=== PATIENT | female | born 1995 | race Caucasian/White ===

== ENCOUNTER 2020-09-21 15:56 | Emergency (ER) | payer OTHER, SELFPAY ==
[2020-09-21 16:06] VITALS: BP 101/68; PULSE 100; RESP 20; TEMP 37.4; O2SAT 98
--- NOTE | 2020-09-21 16:31 | ED.DENTAL ---
HPI - Dental/Oral General Chief complaint: Dental/Oral Stated complaint: lt side facial swelling/tooth pain Time Seen by Provider: 09/21/20 16:35 Source: patient and RN notes reviewed Mode of arrival: ambulatory Limitations: no limitations History of Present Illness HPI Narrative: 25-year-old female who presents to [facility] care with complaints of 1 week duration of left upper jaw pain with some swelling to the left upper jaw. Patient states she went to the [facility] dentist office last and was told that she needed to have some molars extracted but they were unable to do so till October, they cleaned her teeth but did not give her anything for her discomfort. Patient had received Clindamycin in July from her PCP for dental infection but patient states that after a few doses and she took a tooth pick and drained a pus pocked by her left molar it was better so she quit taking them. Patient states that she has been Ibuprofen without out improvement states that she can't even eat it hurts so bad. #14.15.and 16 teeth have decay with swelling of gums and redness and #16 molar broke off at gum, denies any difficulty with swallowing, able to open mouth without difficulty, denies any know fever, chills or sweats. MD Complaint: tooth pain Location: Tooth # (14,15,16) Onset (ago): week(s) (1) Duration: constant Severity: severe Severity scale (1-10): 9 Relieving factors: nothing Exacerbating factors: chewing and cold Context: history of dental caries and poor dental care Associated symptoms: gum swelling and other (facial swelling) Treatment prior to arrival: topical analgesic and oral analgesic Related Data Allergies Allergy/AdvReac Type Severity Reaction Status Date / Time amoxicillin Allergy Unknown Rash Verified 09/21/20 16:26 azithromycin Allergy Unknown Rash Verified 09/21/20 16:26 Review of Systems Review of Systems: Narrative: CONSTITUTIONAL: Denies fever, chills, or sweats. EYES: Denies visual changes, redness, or discharge. ENT: Denies rhinorrhea, congestion, sore throat, or otalgia.positive for dental pain and left facial swelling CARDIOVASCULAR: Denies chest pain, palpitations, or edema. RESPIRATORY: Denies cough or dyspnea.denies any difficulty with swallowing or any difficulty with swallowing GASTROINTESTINAL: Denies abdominal pain, nausea, vomiting, or diarrhea. GENITOURINARY: Denies dysuria or hematuria. SKIN: Denies rash or itching. MUSCULOSKELETAL: Denies back pain, joint pain, or myalgia. NEUROLOGIC: Denies headache, numbness, or weakness. PSYCHIATRIC: positive history of anxiety or depression. All systems reviewed & are unremarkable except as noted in HPI and below PMFSH Past Medical History Medical History (Updated 09/21/20 @ 17:49 by Kendra Lin NP) Dental abscess Depression Ovarian cyst Surgical History Surgical History (Updated 09/21/20 @ 17:49 by Kendra Lin NP) History of tubal ligation Social History Social History (Updated 09/21/20 @ 17:50 by Kendra Lin NP) Smoking status: Never smoker Alcohol intake: current Alcohol use details: rarely Substance use: current Substance use type: marijuana Last use: rare use Living arrangements: with family Gender identity (if verbalized by the patient): Female Sexual Orientation (if Verbalized by the Patient): Straight or Heterosexual Comments At time of signature, agree with nursing past medical, surgical, social history. There is no relevant family history pertinent to the presenting complaint Exam Narrative: Exam Narrative: GENERAL: Well-appearing, well-nourished, and in no acute distress. HEAD: Normocephalic, atraumatic. EYES: PERRLA and EOMI. ENT: Nares clear, no rhinorrhea or epistaxis. Mucous membranes moist.TM s normal with good light reflex, some facial swelling noted to left upper jaw, throat pink with no swelling or redness or any signs of Matt angina. NECK: Supple. no lymphadenopathy, CHEST: Clear
== END 2020-09-21 17:20 | disposition home or self-care (01) ==
PROVIDERS: Emergency Provider Registered Nurse
DX: K04.7 Periapical abscess without sinus (principal); K02.9 Dental caries, unspecified
CPT/HCPCS: 99213; G0463

== ENCOUNTER 2023-02-27 15:49 | Outpatient (CLI) | payer OTHER, SELFPAY | END 2023-02-27 15:50 | disposition home or self-care (01) | LOC: ANHSURGERY 15:54 | PROVIDERS: PCP Internal Medicine; Visit Provider Student in an Organized Health Care Education/Training Program | DX: N70.11 Chronic salpingitis (principal); Z01.818 Encounter for other preprocedural examination | CPT/HCPCS: 36415 ==

== ENCOUNTER 2023-03-03 00:51 | Day surgery (SDC) | payer OTHER, SELFPAY ==
[2023-02-22 12:47] VITALS: BMI 28.0
--- NOTE | 2023-02-22 12:53 | PC.NURSE ---
Report to the Outpatient Waiting Room, entrance under the green pavilion located off [facility], at time 0715 on date 03/03/23_. Planned Procedure Time: 914 . Time changes happen often and if your time is changed the preop area will call you the afternoon before. - You and your visitor will be asked to self-screen and do not enter if you have any COVID symptoms. - A mask is optional within the hospital at this time. Patients may have clear liquids (water, carbonated beverages, clear teas, apple juice) until 3 hours prior to surgery with a maximum of 20 ounces. - No food from midnight until time of surgery - Infants may have breast milk until 4 hours before surgery, formula 6 hours prior to surgery. - Children will be allowed to drink immediately following surgery. If applicable, please bring a bottle or sippy cup to assist with drinking. Juice, water, soda, and popsicles are readily available. For infants on formula, please bring formula the day of surgery. Pacifiers are allowed. Take the following medications with a SIP of water the morning of surgery: ____CARIPRAZINE, TOPARIMATE DO NOT STOP ANY OF YOUR OTHER PRESCRIPTION MEDICATIONS PRIOR TO SURGERY ?EXCEPT THE FOLLOWING Medications to discontinue per physician NONE Date to take last dose DO NOT USE MARIJUANA OR VAPE THE MORNING OF SURGERY Please no make-up, nail ukrainian, hairspray, perfume, deodorant, or body powder the day of surgery. No jewelry (including any body piercings) or valuables the day of surgery, leave them at home. Please take a shower or bath the night before, or the morning of, surgery with an antibacterial soap. Wear comfortable, loose fitting clothing. Children are encouraged to wear pajamas. - Jewelry must be removed prior to entering the operating room. Rings and piercings that are not removed may be cut off. - The hospital will not accept responsibility for valuables. - Please leave all valuables, including medications, at home the day of surgery. If you are going home after surgery, a licensed test driver must drive you home. - NO public transportation without another adult if you receive anesthesia. - We recommend that an adult stay with you for 24 hours following discharge. - We also recommend that you do not drive, make important decision, drink alcoholic beverages, or take any drugs that were not prescribed by your health care provider for at least 24 hours after your discharge time. For Pediatric surgeries, we recommend two adults accompany the child home. Follow any additional instructions given to you from your surgeon. If you or anyone in your household have experienced Covid symptoms in the past week, please notify your surgeon or the nurse liaison at the phone number below for possible testing. Telephone instructions given to PATIENT_and asked if any additional questions and then verbalized understanding. Patient advised to call surgeon office or pre surgery nurse liaison [phone] if any additional questions.
[2023-02-27 16:11] LABS: Hematocrit 36.6 % (37.0-47.0); Hemoglobin 11.7 g/dL (12.0-15.0); Mean Corpuscular Hemoglobin 32.4 pg (26-34); Mean Corpuscular Volume 101.4 fl (80-100); Mean Platelet Volume 9.9 fl (7.4-10.4); Platelet Count Result 320 k/mm3 (150-375); Red Blood Count 3.61 M/mm3 (4.2-5.4); White Blood Count 7.5 K/mm3 (4.5-10.0)
--- NOTE | 2023-03-02 11:45 | PM.IMHP ---
H&P: HPI History of Present Illness Date/Time: 03/02/23 11:45 Chief Complaint: pelvic pain hydrosalpinx Narrative: 27-year-old female who presents for Diagnostic laparoscopy and right salpingectomy for right-sided hydrosalpinx.? Patient called the office complaining of right lower quadrant pelvic pain.? Patient states she has had this pain for several weeks now.? Patient states is a constant pain but the intensity will come and go.? Patient states the pain is about a 5/10 .? Patient states she has had some increasing vaginal discharge.? ? Patient does report a history of chlamydia in 2016.? Patient states she has had a tubal ligation in the past.? Pelvic ultrasound showed elongated cystic structure in the right adnexa suspicious for hydrosalpinx.? Patient does report some nausea but denies any fevers, vomiting. Review of Systems Review of Systems: CONSTITUTIONAL: Denies fever, chills, or sweats. EYES: Denies visual changes, redness, or discharge. ENT: Denies rhinorrhea, congestion, sore throat, or otalgia.positive for dental pain and left facial swelling CARDIOVASCULAR: Denies chest pain, palpitations, or edema. RESPIRATORY: Denies cough or dyspnea.denies any difficulty with swallowing or any difficulty with swallowing GASTROINTESTINAL: Denies abdominal pain, nausea, vomiting, or diarrhea. GENITOURINARY: Denies dysuria or hematuria. SKIN: Denies rash or itching. MUSCULOSKELETAL: Denies back pain, joint pain, or myalgia. NEUROLOGIC: Denies headache, numbness, or weakness. PSYCHIATRIC: positive history of anxiety or depression. All systems reviewed & are unremarkable except as noted in HPI and below Cardiovascular: Cardiovascular: Denies chest pain, Denies leg edema, Denies palpitations, Denies dyspnea and Denies dyspnea on exertion Respiratory: Respiratory: Denies cough, Denies dyspnea and Denies dyspnea on exertion Gastrointestinal: Gastrointestinal: Denies abdominal pain, Denies constipation, Denies diarrhea, Denies nausea and Denies vomiting Genitourinary: Genitourinary: Denies hematuria, Denies urinary frequency, Denies dysuria, Denies pelvic pain, Denies urinary incontinence and Denies vaginal discharge Neurologic: Reports system reviewed and no additional complaints, except as documented Psychiatric: Psychiatric: Reports no additional psychiatric complaints Endocrine: Endocrine: Denies palpitations PMFSH Past Medical History Medical History (Updated 03/02/23 @ 11:47 by Gian Kang MD) Anxiety Dental abscess Depression Migraines Ovarian cyst Vaginal discharge Surgical History Surgical History History of tubal ligation (11/29/18) Family History Family History Father Heart disease Grandparent Hypertension maternal grandmother Social History Social History Smoking status: Never smoker Tobacco type: e-cigarettes/vaping Additional smoking assessment comments: FOR SIX MONTH Alcohol intake: current Alcohol use details: 2 PER MONTH Substance use: current Substance use type: marijuana Other substance usage details: DAILY Last use: rare use Living arrangements: with family Occupation/Education: occupation 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
--- NOTE | 2023-03-02 13:32 | P.PNAN_ITS ---
Anes - Initial Pre Proc Eval Procedure: Operation Date: 03/03/23 09:15 Proposed Procedures p Laparoscopic Right Salpingectomy - Gian Kang MD Date/Time: 03/02/23 13:32 Surgeon: Gian Kang MD Pre Op Diagnosis: Right hydrosalpinx Patient Data Age: 27 Gender: F Height: 1.52 m Weight: 65 kg Allergies Allergy/AdvReac Type Severity Reaction Status Date / Time amoxicillin Allergy Unknown Rash Verified 02/22/23 12:46 azithromycin Allergy Unknown Rash Verified 02/22/23 12:46 Home Medications Medication Instructions Recorded Confirmed Type topiramate 25 mg tablet 25 mg PO DAILY 08/09/22 02/22/23 History cariprazine 4.5 mg capsule 4.5 mg PO DAILY 02/15/23 02/22/23 History (Vraylar) trazodone 50 mg tablet 50 mg PO HS 02/15/23 02/22/23 History Patient hx anesthesia problems: none Family hx anesthesia problems: none Results Review: All pre-operative results and documents have been reviewed as part of the pre- operative evaluation. [facility] Past Medical History Medical History (Updated 03/02/23 @ 11:47 by Gian Kang MD) Anxiety Dental abscess Depression Migraines Ovarian cyst Vaginal discharge Surgical History Surgical History History of tubal ligation (11/29/18) Family History Family History Father Heart disease Grandparent Hypertension maternal grandmother Social History Social History Smoking status: Never smoker Tobacco type: e-cigarettes/vaping Additional smoking assessment comments: FOR SIX MONTH Alcohol intake: current Alcohol use details: 2 PER MONTH Substance use: current Substance use type: marijuana Other substance usage details: DAILY Last use: rare use Living arrangements: with family Occupation/Education: occupation 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 Gender identity (if verbalized by the patient): Female Sexual Orientation (if Verbalized by the Patient): Straight or Heterosexual Anes - Eval Final PreProcedure Day of Procedure 03/02/23 13:32 Patient weight: overweight Heart: regular rate and rhythm Lungs: clear to auscultation and normal air movement Airway: Mallampati scale class II Neurological: alert and oriented Last oral intake: >/= 8 hours ASA classification: II Emergent: no Anesthetic plan: proceed Anesthesia type and monitoring: general ETT Results Review: All pre-operative results and documents have been reviewed as part of the pre- operative evaluation. Informed Consent: The patient's anesthetic plan and its attendant risks and benefits were discussed with the patient/family/POA. Questions were solicited and answers provided to the satisfaction of the patient/family/POA.
[2023-03-03] VITALS (10 sets, daily range): BP systolic 91–110; BP diastolic 51–66; PULSE 50–98; RESP 14–18; TEMP 36.3–36.7; O2SAT 97–100
[2023-03-03] MEDS: ACETAMINOPHEN 500 MG TABLET 1000 MG PO (08:45)
[2023-03-03] MEDS: KETOROLAC 15 MG/ML VIAL (*BKC) IV PUSH (08:45)
[2023-03-03] MEDS: LACTATED RINGERS 1,000 ML 30 ML IV CONT ×2 (08:52→11:55)
--- NOTE | 2023-03-03 09:23 | WPDHPUPDATE1 ---
History and Physical Update Update Date/Time: 03/03/23 09:23 History and Physical has been reviewed, including an updated exam of the patient. There are NO changes in the patient's condition. Risks, benefits, and alternatives have been discussed and questions answered. Patient agrees to proceed with procedure.
--- NOTE | 2023-03-03 10:05 | W.PM.PROC2 ---
Procedure Note - Detailed Date of Procedure 03/03/23 Pre-op Diagnosis Right hydrosalpinx Post-op Diagnosis Same Procedure Performed laparoscopic Right salpingectomy Surgeon Gian Kang MD Anesthesia General Indications pelvic pain right sided hydrosalpinx Findings approximately 4 cm paratubal cyst, apparently hemorrhagic, several small paratubal cysts Description of Procedure The patient was taken to the operating room where general endotracheal anesthesia was undertaken and found to be adequate. She was then prepped and draped in the dorsal lithotomy position and placed in adjustable stirrups. A pre-operative team brief and a time out were completed. A catheter was placed to drain the bladder. Retractors were placed placed in the vagina and the cervix was identified. An acorn uterine manipulator was placed. Attention was then turned to the abdomen which was anesthetized umbilically with injected anesthestic. A 5 mm skin incision was made in the umbilicus. A 5 mm optical trocar was then placed with direct camera visualization of the abdominal layers during placement. The trocar stylet was removed and the camera was used to verify intra-abdominal placement. CO2 insufflation was then connected and resumed. The pelvis was inspected. A left lower quadrant 5 mm port was placed, in addition to a right lower quadrant 10 mm port in the standard fashion after using local anesthetic. The pelvis was inspected. The above findings were noted. The ligasure device was then introduced. The right fallopian tube was transected and ligated by the Ligasure device. The above mention cysts were removed with the fallopian tube. The specimen was placed in an endopouch and removed through the 10 mm port. The surgical site was examined and good hemostasis was noted. A rohini-nancy was used to closed the 10 mm fascial incision with a single interrupted stitch of 0-vicryl. Sponge, lap and needle counts were correct. All skin incisions were closed with 4-0 Vicryl suture subcuticularly. The uterine manipulator was removed from the uterus. Hemostasis of the cervix was noted. The urinary catheter was removed. The patient was taken out of dorsal lithotomy position. Anesthesia was reversed. The patient was taken to the PACU. Estimated Blood Loss 5 Urine Output 100 Drains No Packing No Pathology Yes (right fallopian tube and paratubal cyst) Complications No immediate complications Condition Stable Disposition PACU [facility] Billing Surgery - Charge Forward: Surgery Billing
[2023-03-03] MEDS: fentaNYL CITRATE INJ (*CRX) 100 MCG/2 ML VIAL 25 MCG IV PUSH ×3 (10:42→10:50)
[2023-03-03] MEDS: oxyCODONE HCL (*CRX) 5 MG TAB IR PO (11:25)
== END 2023-03-03 12:42 | disposition home or self-care (01) ==
PROVIDERS: PCP Internal Medicine; Visit Provider Student in an Organized Health Care Education/Training Program
PROC: (CPT 49320; principal; 2023-03-03 09:15)
DX: N70.11 Chronic salpingitis (principal); N83.8 Other noninflammatory disorders of ovary, fallopian tube and broad ligament; F41.9 Anxiety disorder, unspecified; F32.A Depression, unspecified; F12.90 Cannabis use, unspecified, uncomplicated
CPT/HCPCS: 58661; 85027; 86850; 86900; 86901; 88302; A9270; J0330; J1885; J2250; J2270; J2405; J2704; J3010; J7120

== ENCOUNTER 2024-12-09 15:27 | Outpatient (CLI) | payer OTHER, SELFPAY ==
--- NOTE | ~2024-12-09 | US_ITS ---
EXAM: PELVIC ULTRASOUND HISTORY: N93.9 - Abnormal uterine and vaginal bleeding, unspecified COMPARISON: 02/06/2023. Reference is also made to the CT examination of the abdomen and pelvis dated 09/08/2017 FINDINGS: UTERUS: 7.8 x 4.2 x 5.1 cm. The endometrial complex measures 10.2mm, and is trilaminar. RIGHT OVARY: The right ovary is unremarkable in echogenicity and size measuring 1.7 x 1.3 x 2.4 cm. Dopplerable flow is identified. Multiple follicles are noted. LEFT OVARY: The left ovary is unremarkable in echogenicity and size measuring 2.6 x 1.7 x 1.9 cm Dopplerable flow is identified. Multiple follicles are noted. A small amount of free fluid is identified within the pelvis, likely physiologic. IMPRESSION: Unremarkable sonographic evaluation of the female pelvis, as detailed above. Reviewed, dictated and finalized at location A. 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
== END 2024-12-09 15:28 | disposition home or self-care (01) ==
PROVIDERS: PCP Internal Medicine; Visit Provider Obstetrics & Gynecology
DX: N93.9 Abnormal uterine and vaginal bleeding, unspecified (principal)
CPT/HCPCS: 76830; 76856

== ENCOUNTER 2024-12-25 12:27 | Outpatient (CLI) | payer OTHER, SELFPAY ==
[2024-12-25 13:17] LABS: Basophils Absolute Auto 0.1 K/mm3 (0.0-0.1); Basophils Percent Auto 0.7 % (0.2-1.2); Eosinophils Absolute Auto 0.3 K/mm3 (0-0.3); Eosinophils Percent Auto 2.9 % (0-4.4); Hematocrit 36.9 % (37.0-47.0); Hemoglobin 11.7 g/dL (12.0-15.0); Immature Granulocyte Absolute 0.02 K/mm3 (0.00-0.031); Immature Granulocyte Percent A 0.2 % (0-0.5); Lymphocytes Absolute Auto 1.86 K/mm3 (0.9-3.2); Lymphocytes Percent Auto 20.7 % (18.3-44.2); Mean Corpuscular HGB Conc 31.7 g/dl (32-36); Mean Corpuscular Hemoglobin 32.4 pg (26-34); Mean Corpuscular Volume 102.2 fl (80-100); Mean Platelet Volume 10.6 fl (7.4-10.4); Monocytes Absolute Auto 0.7 K/mm3 (0.1-0.6); Monocytes Percent Auto 7.8 % (2.6-8.5); Neutrophils Absolute Auto 6.1 K/mm3 (1.3-6.7); Neutrophils Percent Auto 67.7 % (45.5-73.1); Platelet Count Result 373 k/mm3 (150-375); Red Blood Count 3.61 M/mm3 (4.2-5.4); Red Cell Distribution Width 12.8 % (11.5-14.5)
== END 2024-12-25 12:28 | disposition home or self-care (01) ==
PROVIDERS: PCP Internal Medicine; Visit Provider Obstetrics & Gynecology
DX: N92.0 Excessive and frequent menstruation with regular cycle (principal); R10.2 Pelvic and perineal pain; N94.6 Dysmenorrhea, unspecified
CPT/HCPCS: 36415; 84443; 85025

== ENCOUNTER 2025-01-09 14:58 | Outpatient (CLI) | payer OTHER, SELFPAY ==
[2025-01-09 15:40] LABS: Hematocrit 36.5 % (37.0-47.0); Hemoglobin 11.9 g/dL (12.0-15.0); Mean Corpuscular HGB Conc 32.6 g/dl (32-36); Mean Corpuscular Hemoglobin 33.1 pg (26-34); Mean Corpuscular Volume 101.4 fl (80-100); Mean Platelet Volume 10.5 fl (7.4-10.4); Platelet Count Result 301 k/mm3 (150-375); Red Cell Distribution Width 12.8 % (11.5-14.5); White Blood Count 6.6 K/mm3 (4.5-10.0)
== END 2025-01-09 14:59 | disposition home or self-care (01) ==
LOC: ANHLAB 14:59
PROVIDERS: PCP Internal Medicine; Visit Provider Obstetrics & Gynecology
DX: N92.0 Excessive and frequent menstruation with regular cycle (principal)
CPT/HCPCS: 36415; 85027; 86850; 86900; 86901

== ENCOUNTER 2025-01-16 00:57 | Day surgery (SDC) | payer OTHER, SELFPAY ==
[2025-01-08 11:07] VITALS: BMI 24.0
--- NOTE | 2025-01-08 11:13 | PC.NURSE ---
Addendum entered by Brigido Fritz RN 01/08/25 14:26: Ok to take Fluoxetine morning of surgery with a sip of water. Original Note: Report to the Outpatient Waiting Room, entrance under the green pavilion located off [facility], at time _0600_ on date _[id number]_. Planned Procedure Time: _0730_.? Time changes happen often and if your time is changed the preop area will call you the afternoon before. - You and your visitor will be asked to self-screen and do not enter if you have any COVID symptoms. Please call surgeon if you need to reschedule. - A mask is optional within the hospital at this time. Patients may have clear liquids (water, carbonated beverages, clear teas, apple juice) until 3 hours prior to surgery with a maximum of 20 ounces. - No food from midnight until time of surgery and no smoking, vaping or marijuana, or chewing tobacco (or any form of nicotine). No chewing gum, candy or mints. Take only the following medications with a SIP of water on the morning of surgery: ____None____ DO NOT STOP ANY OF YOUR OTHER PRESCRIPTION MEDICATIONS PRIOR TO SURGERY EXCEPT THE FOLLOWING Hold all vitamins and supplements for 3 days per anesthesiologist. Medications to discontinue per physician Date to take last dose Please no make-up, nail setswana, hairspray, perfume, deodorant, or body powder the day of surgery.? No jewelry (including any body piercings) or valuables the day of surgery, leave them at home.? Please take a shower or bath the night before, or the morning of, surgery with an antibacterial soap.? Wear comfortable, loose fitting clothing.? - Jewelry must be removed prior to entering the operating room.? Rings and piercings that are not removed may be cut off. - The hospital will not accept responsibility for valuables.? - Please leave all valuables, including medications, at home the day of surgery. If you are going home after surgery, a licensed regional tanker truck driver must drive you home.? - NO public transportation without another adult if you receive anesthesia. - We recommend that an adult stay with you for 24 hours following discharge. - We also recommend that you do not drive, make important decision, drink alcoholic beverages, or take any drugs that were not prescribed by your health care provider for at least 24 hours after your discharge time. Follow any additional instructions given to you from your surgeon. Telephone instructions given to __Irma__and asked if any additional questions and then verbalized understanding. Patient advised to call surgeon office or pre surgery nurse liaison [phone] if any additional questions.
[2025-01-16] VITALS (14 sets, daily range): BP systolic 85–126; BP diastolic 38–73; PULSE 59–100; RESP 11–16; TEMP 36.4–37.3; O2SAT 95–100; BMI 23.8
[2025-01-16] MEDS: KETOROLAC 15 MG/ML VIAL (*BKC) IV PUSH (06:50)
[2025-01-16] MEDS: LACTATED RINGERS 1,000 ML 30 ML IV CONT ×3 (06:50→10:05)
[2025-01-16] MEDS: ACETAMINOPHEN 500 MG TABLET 1000 MG PO ×4 (06:50→23:08)
[2025-01-16 07:03] LABS: BEDSIDEPREGUCG Negative (Negative)
--- NOTE | 2025-01-16 07:11 | WPDANESEPPF ---
Anes - Initial Pre Proc Eval Procedure: Operation Date: 01/16/25 07:30 Proposed Procedures p Robotic Assisted Total Laparoscopic Hysterectomy with Bilateral Salpingectomy, - Paresh Ceballos MD Date/Time: 01/16/25 07:11 Surgeon: Paresh Ceballos MD Pre Op Diagnosis: Menorrhea Patient Data Age: 29 Gender: F Height: 1.52 m Weight: 55.2 kg Last Vital Signs Temp 37.3 C 01/16/25 06:27 Pulse 100 01/16/25 06:27 Resp 14 01/16/25 06:27 BP 115/72 01/16/25 06:27 Pulse Ox 100 01/16/25 06:27 Allergies Allergy/AdvReac Type Severity Reaction Status Date / Time amoxicillin Allergy Unknown Rash Verified 01/16/25 06:25 azithromycin Allergy Unknown Rash Verified 01/16/25 06:25 Home Medications ?Medication ?Instructions ?Recorded ?Confirmed ?Type fluoxetine 20 mg capsule (Prozac) 20 mg PO DAILY 01/06/25 01/08/25 History lurasidone 20 mg tablet (Latuda) 20 mg PO DAILY 01/06/25 01/08/25 History Laboratory Tests 01/16/25 06:15 POC Urine HCG, Qual Negative (Negative) Patient hx anesthesia problems: none Family hx anesthesia problems: none Results Review: All pre-operative results and documents have been reviewed as part of the pre-operative evaluation. [facility] Past Medical History Medical History Vaginal discharge Migraines Anxiety Ovarian cyst Depression Dental abscess Surgical History Surgical History History of tubal ligation (11/29/18) Family History Family History Father Heart disease Grandparent Hypertension maternal grandmother Social History Social History Smoking status: Current every day smoker Tobacco type: e-cigarettes/vaping Additional smoking assessment comments: FOR SIX MONTH Alcohol intake: current Alcohol use details: 2 PER MONTH Substance use: current Substance use type: marijuana Other substance usage details: DAILY Last use: rare use Do You Feel Safe in your Home?: Yes Lack of Transportation: No Lack of Food: Never True Current Housing: I Have Housing Concerned About Future Housing: No Difficulty Paying Gas/Electric Bills: YES Difficulty Paying for Meds: No Currently Unemployed: No Education: High School Diploma/GED Difficulty w/ Childcare or Family Care: No Living arrangements: with family 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/Education: 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 Gender identity (if verbalized by the patient): Female Sexual Orientation (if Verbalized by the Patient): Straight or Heterosexual Spiritual care concerns: No Anes - Eval Final PreProcedure Day of Procedure 01/16/25 07:11 Patient weight: normal Heart: regular rate and rhythm Lungs: clear to auscultation Airway: Mallampati scale class II Neurological: alert and oriented Last oral intake: >/= 8 hours ASA classification: II Emergent: no Anesthetic plan: proceed Anesthesia type and monitoring: general ETT and standard monitoring Results Review: All pre-operative results and documents have been reviewed as part of the pre-operative evaluation. Informed Consent: The patient's anesthetic plan and its attendant risks and benefits were discussed with the patient/family/POA. Questions were solicited and answers provided to the satisfaction of the patient/family/POA.
--- NOTE | 2025-01-16 07:13 | WPDHPUPDATE1 ---
History and Physical Update Update Date/Time: 01/16/25 07:13 RATLH as well as removal of any tubal remanants History and Physical has been reviewed, including an updated exam of the patient. There are NO changes in the patient's condition. Risks, benefits, and alternatives have been discussed and questions answered. Patient agrees to proceed with procedure.
[2025-01-16] MEDS: SCOPOLAMINE 1 MG PATCH 1 PATCH TRANSDERM (07:15)
[2025-01-16] MEDS: ceFAZolin 2 GM/D5W 50 ML 2 GM/50 ML BAG IVPB (07:24)
--- NOTE | 2025-01-16 08:36 | W.PM.PROC2 ---
Procedure Note - Detailed Date of Procedure 01/16/25 Pre-op Diagnosis 1. Menometrorrhagia 2. Dysmenorrhea Post-op Diagnosis Same Procedure Performed 1. Robotic assisted total laparoscopic hysterectomy 2. Robotic assisted left partial salpingectomy Surgeon Paresh Ceballos MD Anesthesia General Findings Uterus mildly enlarged and globular, hypervascular consistent with adenomyosis. Ovaries without abnormality. Left distal tubal segment present. Description of Procedure Patient prepped and draped in usual manner for this procedure. Cervical instruments were placed for uterine mobility throughout the case. Abdominal trocar sites were then marked and placed under direct visualization, attached to the [employer] system, and instruments were placed under direct visualization. Surgeon moved to the console. Left mesosalpinx was cauterized and cut to remove the segment of fallopian tube. Then bilaterally the round ligaments were cauterized and cut bladder flap developed without difficulty. Utero-ovarian ligaments were cauterized and cut to drop the ovaries out of the operative field. Posterior leaf of the broad ligament was then incised to skeletonize the uterine vessels. Once this was done the vessels were cauterized and cut to remove vascularity to the uterus. Once this was undertaken the posterior colpotomy incision was made and this was carried circumferentially to separate the cervix from the vagina. Uterus was delivered into the vagina. Vaginal cuff was then closed using V lock suture from the right angle to midline and from the left angle in line with good approximation hemostasis noted. Irrigation was undertaken with no bleeding. Hematoma was then empirically placed over the vaginal cuff. Gas was allowed to escape, trocars removed, and incisions approximated 4-0 Monocryl. Patient was sent to recovery room in stable condition. Estimated Blood Loss 100 Drains No Packing No Pathology Yes Complications No immediate complications Condition Stable Disposition PACU [facility] Billing Surgery - Charge Forward: Surgery Billing
[2025-01-16] MEDS: ONDANSETRON INJ 4 MG/2 ML VIAL IV PUSH (08:50)
[2025-01-16] MEDS: fentaNYL CITRATE INJ (*CRX) 100 MCG/2 ML VIAL 25 MCG IV PUSH ×6 (08:50→10:00)
[2025-01-16] MEDS: diazePAM INJ (*CRX) 10 MG/2 ML SYRINGE 5 MG IV PUSH (09:05)
--- NOTE | 2025-01-16 10:32 | ADMGEN ---
This patient, Irma Ivy, was admitted to OB 2nd Floor Room 289-00. Patient/family oriented to hospital policies and general routines including ID bracelet, bed and alarms, visiting hours, pain management, procedures, bathroom and other care routines, personal items, smoking policy, room service/diet, and visiting hours. Information on how to activate the Rapid Response Team has been discussed. Patient/Family are encouraged to report perceived risks to care and to ask questions if they do not understand what they are told or what they should do.
[2025-01-16] MEDS: DEXTROSE 5%/0.45% SOD CHL 1,000 ML 125 ML IV CONT (11:01)
[2025-01-16] MEDS: FLUoxetine HCL 20 MG CAPSULE PO (11:20)
[2025-01-16] MEDS: oxyCODONE HCL (*CRX) 5 MG TAB IR PO ×3 (11:20→19:10)
[2025-01-16] MEDS: DOCUSATE SODIUM 100 MG CAPSULE PO ×2 (11:20→17:58)
[2025-01-16] MEDS: SIMETHICONE 80 MG TAB.CHEW PO ×2 (12:09→17:58)
[2025-01-16] MEDS: KETOROLAC 30 MG/ML VIAL (*BKC) IV PUSH ×3 (12:10→23:09)
[2025-01-16] MEDS: [UNRECOGNIZED DRUG - OTHER] PO (23:09)
[2025-01-16] MEDS: LURASIDONE 20 MG PO (23:09)
[2025-01-17 04:15] VITALS: BP 94/62; PULSE 57; RESP 16; TEMP 37.2; O2SAT 99
[2025-01-17 04:47] LABS: Basophils Percent Auto 0.3 % (0.2-1.2); Eosinophils Absolute Auto 0.1 K/mm3 (0-0.3); Eosinophils Percent Auto 1.1 % (0-4.4); Hematocrit 33.1 % (37.0-47.0); Hemoglobin 10.6 g/dL (12.0-15.0); Immature Granulocyte Absolute 0.04 K/mm3 (0.00-0.031); Immature Granulocyte Percent A 0.3 % (0-0.5); Lymphocytes Absolute Auto 1.93 K/mm3 (0.9-3.2); Lymphocytes Percent Auto 16.3 % (18.3-44.2); Mean Corpuscular Hemoglobin 33.3 pg (26-34); Mean Corpuscular Volume 104.1 fl (80-100); Mean Platelet Volume 10.9 fl (7.4-10.4); Monocytes Absolute Auto 0.8 K/mm3 (0.1-0.6); Monocytes Percent Auto 6.5 % (2.6-8.5); Neutrophils Absolute Auto 8.9 K/mm3 (1.3-6.7); Neutrophils Percent Auto 75.5 % (45.5-73.1); Platelet Count Result 245 k/mm3 (150-375); Red Blood Count 3.18 M/mm3 (4.2-5.4); Red Cell Distribution Width 12.8 % (11.5-14.5); White Blood Count 11.9 K/mm3 (4.5-10.0)
[2025-01-17] MEDS: IBUPROFEN 600 MG TABLET PO (05:11)
[2025-01-17] MEDS: ACETAMINOPHEN 500 MG TABLET 1000 MG PO (05:11)
[2025-01-17] MEDS: FLUoxetine HCL 20 MG CAPSULE PO (07:36)
[2025-01-17] MEDS: SIMETHICONE 80 MG TAB.CHEW PO (07:36)
[2025-01-17] MEDS: DOCUSATE SODIUM 100 MG CAPSULE PO (07:36)
--- NOTE | 2025-01-17 07:41 | PM.GYNPNOP ---
[employer] - A/P Assessment and plan (1) S/P laparoscopic hysterectomy: Code(s): Z90.710 - Acquired absence of both cervix and uterus Status: Acute Postoperative Procedures: Procedures Operation Date: 01/16/25 07:30 Actual Procedure Side Surgeon p Robotic Assisted Total Laparoscopic Hysterectomy with Left Salpingectomy, Left Paresh Ceballos MD Postoperative day: 1 Postoperative status: doing well Postoperative plan: routine post-op care and discharge Time Spent With Patient Time: Total time spent is greater than 50% in coordination of care (as documented) at patient's floor/unit and/or counseling patient: Time with patient: less than 15 minutes [employer]- PN:Subj Post-Op Subjective Date/time seen: 01/17/25 07:41 Interval history: POD#1 Irma reports doing well today. No issues overnight. Her pain is controlled with PO meds. She has tolerated regular diet. She denies any vaginal bleeding. She has voided. She has passed flatus. She has ambulated and denies any symptoms of anemia. Review of Systems Review of Systems: All systems reviewed & are unremarkable except as noted in HPI and below (HPI) Constitutional: Constitutional: Denies chills, Denies fever(s) and Denies headache(s) Eyes: Eyes: Denies change in vision ENT: Denies dizziness and Denies headache(s) Cardiovascular: Cardiovascular: Denies chest pain and Denies rapid heart rate Respiratory: Respiratory: Denies cough Genitourinary: Genitourinary: Denies abnormal vaginal bleeding Neurologic: Denies dizziness and Denies headache(s) Exam Const: General: cooperative, healthy appearing, comfortable and no acute distress Orientation/consciousness: patient oriented x3 Resp: Effort & Inspection: normal respiratory effort Auscultation: clear to auscultation bilaterally Cardio: Rate: regular rate GI: Inspection: normal to inspection and incision ( LSC incisions c/d/i) GI Palp: Yes abdominal tenderness (appropriate) and Yes Soft to palpation Auscultation: normal bowel sounds : Other: normal bleeding on pad Skin: General skin exam: normal color Neuro: General: patient oriented x3 Psych: Appearance: grossly normal Affect: normal affect Attitude: cooperative [employer] - PN: Obj Data Vital Signs Vital Signs: Vital Signs - 24 hr 01/16/25 08:47 01/16/25 09:00 01/16/25 09:15 Temperature 98.7 F Pulse Rate 98 79 68 Respiratory Rate 16 11 L Blood Pressure 126/73 105/64 97/52 L Pulse Oximetry 100 100 100 Oxygen Delivery Simple Face Mask Room Air Room Air Oxygen Flow Rate 8 01/16/25 09:30 01/16/25 09:45 01/16/25 10:00 Temperature Pulse Rate 72 66 66 Respiratory Rate 15 12 12 Blood Pressure 90/53 L 94/50 L 98/50 L Pulse Oximetry 98 98 95 Oxygen Delivery Room Air Room Air Room Air Oxygen Flow Rate 01/16/25 10:15 01/16/25 10:35 01/16/25 10:45 Temperature 98.3 F Pulse Rate 71 64 Respiratory Rate 14 16 Blood Pressure 102/52 L 85/50 L Pulse Oximetry 97 97 Oxygen Delivery Room Air Room Air Oxygen Flow Rate 01/16/25 11:20 01/16/25 15:20 01/16/25 15:20 Temperature 97.9 F Pulse Rate 60 Respiratory Rate 16 Blood Pressure 101/59 L 98/60 L Pulse Oximetry 100 Oxygen Delivery Room Air Oxygen Flow Rate 01/16/25 20:00 01/16/25 20:02 01/16/25 23:10 Temperature 98.3 F 97.6 F Pulse Rate 68 59 L Respiratory Rate 16 16 Blood Pressure 99/38 L 86/42 L 94/52 L Pulse Oximetry 99 99 Oxygen Delivery Oxygen Flow Rate 01/17/25 04:15 Temperature 99 F Pulse Rate 57 L Respiratory Rate 16 Blood Pressure 94/62 L Pulse Oximetry 99 Oxygen Delivery Oxygen Flow Rate Intake/Output Intake/Output: Intake & Output 01/14/25 01/15/25 01/16/25 01/17/25 23:59 23:59 23:59 23:59 Intake Total 3250 Output Total 2100 Balance 1150 Meds/Results Medications: Active Medications Generic Name Dose Route Start Last Admin Trade Name Freq PRN Reason Stop Dose Admin Acetaminophen 1,000 mg 01/16/25 12:00 01/17/25 05:11 Acetaminophen 500 Mg Tablet PO 1,000 mg Q6HR DEBORAH Administration Docusate Sodium 100 mg 01/16/25 10:25 01/17/25 07:36 Docusate Sodium 100 Mg Capsule PO 100 mg BID DEBORAH Administration Fluoxetine HCl 20 mg 01/16/25 10:25 01/17/25 07:36 Fluoxetine Hcl 20 Mg Capsule PO 20 mg DAILY DEBORAH Administration Dextrose/Sodium Chloride 1,000 mls @ 125 mls/hr 01/16/25 10:25 01/16/25 23:17 Dextrose 5% Sodium Chloride 0.45% IV CONT Not Given .Q8H DEBORAH Ibuprofen 600 mg 01/17/25 06:00 01/17/25 05:11 Ibuprofen 600 Mg Tablet PO 600 mg Q6HR DEBORAH Administration Naloxone HCl 0.1 mg 01/16/25 10:25 Naloxone Hcl 0.4 Mg/Ml Vial IV PUSH Q2M PRN Respiratory rate less than 10 Non-Formulary Medication 20 mg 01/16/25 21:00 01/16/25 23:09 Lurasidone [Latuda] PO 02/15/25 20:59 20 mg HS DEBORAH Administration Ondansetron HCl 4 mg 01/16/25 10:25 Ondansetron Inj 4 Mg/2 Ml Vial IV PUSH Q6H PRN Nausea And Vomiting Oxycodone HCl 5 mg 01/16/25 10:25 01/16/25 19:10 Oxycodone Hcl (*Crx) 5 Mg Tab Ir PO 5 mg Q4H PRN Administration Pain Rated 4-6 Oxycodone HCl 10 mg 01/16/25 10:25 Oxycodone Hcl (*Crx) 5 Mg Tab Ir PO Q6H PRN Pain Rated 7-10 Simethicone 80 mg 01/16/25 12:00 01/17/25 07:36 Simethicone 80 Mg Tab.Chew PO 80 mg TIDWM DEBORAH Administration Labs 01/17/25 04:23 Labs: Laboratory Results - last 24 hr 01/17/25 04:23 WBC 11.9 H RBC 3.18 L Hgb 10.6 L Hct 33.1 L MCV 104.1 H MCH 33.3 MCHC 32.0 RDW 12.8 Plt Count 245 MPV 10.9 H Immature Gran % (Auto) 0.3 Neut % (Auto) 75.5 H Lymph % (Auto) 16.3 L [place] % (Auto) 6.5 Eos % (Auto) 1.1 Baso % (Auto) 0.3 Lymph # (Auto) 1.93 [place] # (Auto) 0.8 H Eos # (Auto) 0.1 Baso # (Auto) 0.0 Abs Immat Gran (auto) 0.04 H Absolute Neuts (auto) 8.9 H Absolute Nucleated RBC 0.000 Nucleated RBC % 0.0
[2025-01-17 08:25] VITALS: BP 91/48; PULSE 65; RESP 16; TEMP 36.8; O2SAT 98
== END 2025-01-17 09:05 | disposition home or self-care (01) ==
LOC: ANHSURGERY 08:43 → ANHOB2 10:28
PROVIDERS: PCP Internal Medicine; Visit Provider Obstetrics & Gynecology
PROC: (CPT 58571; principal; 2025-01-16 07:30)
DX: N72 Inflammatory disease of cervix uteri (principal); N85.8 Other specified noninflammatory disorders of uterus; G89.18 Other acute postprocedural pain; F41.9 Anxiety disorder, unspecified; F32.A Depression, unspecified; F17.290 Nicotine dependence, other tobacco product, uncomplicated; F12.90 Cannabis use, unspecified, uncomplicated; Z98.890 Other specified postprocedural states; Z98.51 Tubal ligation status; Z82.49 Family history of ischemic heart disease and other diseases of the circulatory system
CPT/HCPCS: 58571; S2900; 36415; 85025; 88307; 99199; A9270; J0690; J1100; J1171; J1885; J2003; J2250; J2405; J2704; J3010; J3360; J7120